=== PATIENT | female | born 1990 | race Caucasian/White ===

== ENCOUNTER 2016-04-11 10:03 | Emergency (ER) | payer OTHER ==
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
[2016-04-11] MEDS ORDERED: ACETAMINOPHEN 325 MG TAB PO ONE (11:05)
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
[2016-04-11 12:33] VITALS: BP 131/77; PULSE 67; RESP 18; TEMP 98.2; O2SAT 97
== END 2016-04-11 12:34 | disposition home or self-care (01) ==
DX: S09.90XA Unspecified injury of head, initial encounter (principal); F17.200 Nicotine dependence, unspecified, uncomplicated; Z91.040 Latex allergy status; V89.2XXA Person injured in unspecified motor-vehicle accident, traffic, initial encounter; Y92.410 Unspecified street and highway as the place of occurrence of the external cause